=== PATIENT | male | born 1985 | race Caucasian/White ===

== ENCOUNTER 2020-10-23 11:53 | Day surgery (SDC) | payer OTHER ==
[~2020-10-23] VITALS: Ht 180.3 cm; Wt 104.0 kg
[~2020-10-23 11:53] MED LIST: EPINEPHrine VIAL 30 MG/30 ML VIAL ONE; IV RINGERS,LACTATED 1000ML 1,000 ML IV SCH; PROCHLORPERAZINE 10 MG/2 ML VIAL. IVP PRN; fentaNYL PF VIAL 100 MCG/2 ML VIAL IVP PRN
[2020-10-23 12:26] VITALS: BP 117/65
[2020-10-23] MEDS ORDERED: LIDOCAINE 2% PF 5 ML VIAL. ONE (12:28)
[2020-10-23] MEDS ORDERED: MIDAZOLAM HCL/PF 2 MG/2 ML VIAL. ONE (12:28)
[2020-10-23] MEDS ORDERED: PROPOFOL 10 MG/ML (20ML) VIAL. IV ONE (12:28)
[2020-10-23] MEDS ORDERED: fentaNYL PF VIAL 100 MCG/2 ML VIAL ONE (12:28)
[2020-10-23] MEDS ORDERED: ONDANSETRON PF 4 MG/2 ML VIAL. ONE ×2 (13:02→13:50)
[2020-10-23] MEDS ORDERED: DEXAMETHASONE SOD PHOS 4 MG/ML VIAL ONE (13:02)
[2020-10-23] MEDS ORDERED: BUPIVACAINE MPF 0.25% 30 ML VIAL. ONE (13:05)
[2020-10-23] MEDS ORDERED: SEVOFLURANE 61 TO 120 MINUTES. IH ONE (13:06)
[2020-10-23] MEDS ORDERED: MORPHINE SULFATE 2 MG/ML INJ. ONE (13:32)
[2020-10-23] MEDS: MORPHINE SULFATE 2 MG/ML INJ. IVP PRN ×2 (13:34→13:45)
--- NOTE | 2020-10-23 13:40 | PDOC4 ---
OPERATIVE NOTE Date: Date: Oct 23, 2020 Pre-Op Diagnosis: Medial meniscal tear left knee Post-Op Diagnosis: Same Procedure Performed: Left knee arthroscopy with partial medial meniscectomy Surgeon: Yaneli Anesthesia Type: General Blood Loss: 20 cc Specimans Obtained: None Findings: See dictation Complications: None Operative Note: See dictation DELANO ELISE Jr. DO Oct 23, 2020 13:40
[2020-10-23] MEDS ORDERED: HYDR-2761 PO (13:46)
[2020-10-23] MEDS ORDERED: HYDROmorphone 2 MG/ML VIAL ONE (13:50)
[2020-10-23] MEDS: HYDROmorphone 2 MG/ML VIAL IVP PRN ×2 (13:56→14:23)
[2020-10-23] MEDS ORDERED: ONDANSETRON PF 4 MG/2 ML VIAL. IVP ONE (14:00)
[2020-10-23 14:09] VITALS: BP 119/73
[2020-10-23] MEDS ORDERED: HYDROcodone/APAP 5/325MG 1 TAB TABLET ONE (14:19)
[2020-10-23] MEDS ORDERED: HYDROcodone/APAP 5/325MG 1 TAB TABLET PO ONE (14:45)
--- NOTE | 2020-10-23 16:11 | OP ---
DATE OF SURGERY: 10/23/2020 PREOPERATIVE DIAGNOSIS: Medial meniscal tear, left knee. POSTOPERATIVE DIAGNOSIS: Medial meniscal tear, left knee. PROCEDURE: Left knee arthroscopy with partial medial meniscectomy. SURGEON: Shelton Groves Jr, DO LAUNCH STEWARD: Ketan. ANESTHESIA: General. COMPLICATIONS: None. ESTIMATED BLOOD LOSS: 20 mL. Standard dictation for the certified first assistant. DESCRIPTION OF PROCEDURE: The patient was taken to the operative suite, given a general anesthetic. Left lower extremity was placed in the knee leonardo, prepped and draped in a sterile fashion. Inferomedial and inferolateral portals were established. The knee was insufflated with saline. Visualization of the patellofemoral joint noted this to be intact, tracking appropriately. No chondral lesions were noted at this point at all. There were no loose bodies noted throughout the knee including the medial or lateral gutters. The medial meniscus upon entering the medial compartment noted there to be a fissure along the area of the medial femoral condyle, but this was stable. Tibial side was also stable without any fissuring or any lesions at all. There was actually a radial split in the meniscus; however, along the peripheral aspect, the attachment to the capsule was completely intact and stable. Therefore, using basket forceps and shaver, a partial medial meniscectomy was undertaken and this was debrided back to stable tissue. After this was done, this was noted to have a very good and stable remnant. Probing of the rest of this noted this to be completely intact. Visualization of the ACL and the PCL, they looked appropriately intact. PCL was stable with probing. There was mild laxity of the ACL, but no significant instability testing intraoperatively or significant laxity with probing of the ACL. Lateral compartment was noted to be completely intact and stable without any lesions, abnormalities, problems or anything at all abnormal. This knee was then thoroughly irrigated. Wounds were reapproximated. Local was placed. Sterile dressing was applied. The patient was then taken from the operative bed to the postoperative bed, taken to the PACU in stable condition. JOSE DR: Shayy TID: [id number]
== END 2020-10-23 14:56 | disposition home or self-care (01) ==
LOC: SURG 11:53
PROVIDERS: ATTEND Orthopaedic Surgery
DX: S83.242A Other tear of medial meniscus, current injury, left knee, initial encounter (principal); F41.9 Anxiety disorder, unspecified; Z98.890 Other specified postprocedural states; X58.XXXA Exposure to other specified factors, initial encounter; Y93.89 Activity, other specified; Y92.89 Other specified places as the place of occurrence of the external cause
CPT/HCPCS: 29881; A4930; J0171; J0690; J1100; J1170; J2250; J2270; J2405; J2704; J3010; J3490